=== PATIENT | female | born 1955 | race Caucasian/White ===

== ENCOUNTER 2019-12-20 10:00 | Outpatient (CLI) | payer BC, SELFPAY ==
--- NOTE | 2019-12-20 14:15 | XR_ITS ---
WS: [id number] CHEST 2 VIEWS HISTORY: PLEURAL EFFUSION, RIGHT COMPARISON: 09/28/2017 Lungs: Clear with no abnormality. No pleural effusion or pneumothorax. Cardiac size: Normal. Mediastinum/Aorta: Normal mediastinum. Bones: Normal. XR/XR chest 2V* [id number] IMPRESSION: Negative chest radiograph. No pleural effusion.
== END 2019-12-20 10:01 | disposition home or self-care (01) ==
LOC: WPI 11-11 04:15
PROVIDERS: PCP Nurse Practitioner Family; Visit Provider Nurse Practitioner Family
DX: J90 Pleural effusion, not elsewhere classified (principal)
CPT/HCPCS: 71046

== ENCOUNTER 2020-01-01 09:08 | Outpatient (CLI) | payer BC, SELFPAY ==
--- NOTE | 2020-01-01 09:20 | MM_ITS ---
WS: [id number] SCREENING DIGITAL MAMMOGRAM WITH CAD HISTORY: SCREENING COMPARISON: 11/24/2018 and 10/07/2017 Bilateral CC and MLO views submitted. Computer aided detection analyzed. Breast composition: There are scattered areas of fibroglandular density. No suspicious masses, microc alcifications or architectural distortion. Stable nodule 3:00 LEFT breast. MM/[id number] IMPRESSION: BI-RADS: 2-Benign FOLLOW UP: 1 Year Follow-up
== END 2020-01-01 09:09 | disposition home or self-care (01) ==
LOC: RADSHAW 09:11
PROVIDERS: PCP Nurse Practitioner Family; Visit Provider Nurse Practitioner Family
DX: Z12.31 Encounter for screening mammogram for malignant neoplasm of breast (principal)
CPT/HCPCS: 77067

== ENCOUNTER 2021-01-01 08:35 | Outpatient (CLI) | payer BC, SELFPAY ==
--- NOTE | 2021-01-01 08:46 | MM_ITS ---
WS: [id number] BILATERAL SCREENING DIGITAL MAMMOGRAM WITH CAD HISTORY: SCREENING COMPARISON: 01/01/2020, 11/24/2018, 10/07/2017, 10/08/2016 Bilateral CC and MLO views submitted. Computer aided detection analyzed. Breast composition: There are scattered areas of fibroglandular density. No suspicious masses, microc alcifications or architectural distortion. Benign lymph node middle depth LEFT breast at 3:00. MM/[place] [id number] IMPRESSION: BI-RADS: 2-Benign FOLLOW UP: 1 Year Follow-up
== END 2021-01-01 08:36 | disposition home or self-care (01) ==
LOC: RADSHAW 08:39
PROVIDERS: PCP Nurse Practitioner Family; Visit Provider Nurse Practitioner Family
DX: Z12.31 Encounter for screening mammogram for malignant neoplasm of breast (principal)
CPT/HCPCS: 77067

== ENCOUNTER → 2021-10-31 14:07 | Outpatient (BNVA) | payer MEDICARE, SELFPAY | PROVIDERS: PCP Nurse Practitioner Family; Visit Provider Registered Nurse Neonatal Intensive Care | DX: J01.90 Acute sinusitis, unspecified (principal); W57.XXXA Bitten or stung by nonvenomous insect and other nonvenomous arthropods, initial encounter | CPT/HCPCS: 86618; 86666; 86757 ==

== ENCOUNTER 2021-11-10 12:53 | Outpatient (CLI) | payer MEDICARE, SELFPAY ==
--- NOTE | 2021-11-10 13:05 | XR_ITS ---
WS: [id number] SCREENING DEXA SCAN [employer] CLINICAL INFORMATION: ASYMPTOMATIC MENOPAUSAL STATE COMPARISON: None. FINDINGS: The L1-L4 bone mineral density measures 1.101 g/cm2. This corresponds to a T score score of -0.7 and Z score of 0.1. Left femoral neck bone mineral density measures 0.917 g/cm2. This corresponds to a T score of -0.7 an d Z score of -0.1. Right femoral neck bone mineral density measures 0.905 g/cm2. This corresponds to a T score -0.8of an d Z score of -0.2. Mean femoral neck bone mineral density measures 0.911 g/cm2. This corresponds to a T score of -0.8 an d Z score of -0.1. XR/XR DEXA axial skeleton* [id number] IMPRESSION: Normal bone mineralization. Patient's FRAX calculated 10 year probability for major osteoporotic fracture i s 10.9 % and osteoporotic hip fracture is 1.9%.
== END 2021-11-10 12:54 | disposition home or self-care (01) ==
LOC: RAD 12:54
PROVIDERS: PCP Nurse Practitioner Family; Visit Provider Nurse Practitioner Family
DX: Z78.0 Asymptomatic menopausal state (principal)
CPT/HCPCS: 77080

== ENCOUNTER 2022-01-04 09:59 | Outpatient (CLI) | payer MEDICARE, SELFPAY ==
--- NOTE | 2022-01-04 10:06 | MM_ITS ---
WS: [id number] BILATERAL SCREENING DIGITAL TOMOSYNTHESIS MAMMOGRAM WITH CAD HISTORY: SCREENING COMPARISON: 01/01/2021 and 01/01/2020 Bilateral CC and MLO views with tomosynthesis and synthetic mammography submitted. Computer aided det ection analyzed. Breast composition: There are scattered areas of fibroglandular density. No suspicious masses, microc alcifications or architectural distortion. Benign lymph node LEFT breast at 3:00. MM/[place] [id number] IMPRESSION: BI-RADS: 2-Benign FOLLOW UP: 1 Year Follow-up
== END 2022-01-04 10:00 | disposition home or self-care (01) ==
LOC: RAD 10:00
PROVIDERS: PCP Nurse Practitioner Family; Visit Provider Nurse Practitioner Family
DX: Z12.31 Encounter for screening mammogram for malignant neoplasm of breast (principal)
CPT/HCPCS: 77063; 77067

== ENCOUNTER 2022-04-28 08:18 | Oncology outpatient (recurring) (ONCR) | payer MEDICARE, SELFPAY ==
[2022-04-28 09:58] LABS: Basophils % 0.6 %; Eosinophils # 0.1 10^3/uL (0.0-0.8); Eosinophils % 2.8 %; Hematocrit 42.1 % (37.0-47.0); Hemoglobin 13.7 g/dL (11.5-15.3); Lymphocytes # 1.2 10^3/uL (0.8-4.8); Lymphocytes % 32.4 %; Mean Corpuscular HGB Conc 32.5 g/dL (30.0-36.0); Mean Corpuscular Hemoglobin 29.7 pg (28.0-34.0); Mean Corpuscular Volume 91.3 fl (81-99); Mean Platelet Volume 10.4 fL (7.4-10.4); Monocytes # 0.2 10^3/uL (0.2-0.9); Monocytes % 6.6 %; Neutrophils # 2.07 10^3/uL (1.8-7.7); Neutrophils % 57.3 %; Nucleated Red Blood Cells % 0 %; Platelet Count 122 10^3/cmm (130-400); Red Blood Count 4.61 10^6/uL (4.1-5.3); Red Cell Distribution Width 13.9 % (12.1-15.1); White Blood Count 3.6 10^3/uL (4.0-10.0)
[2022-04-28 10:02] LABS: Erythrocyte Sedimentation Rate 41 mm/hr (0-15)
[2022-04-28 10:15] LABS: Ammonia 35 umol/L (11-51)
[2022-04-28 10:34] LABS: Alanine Aminotransferase 13 U/L (0-33); Albumin Level 3.2 g/dL (3.5-5.2); Alkaline Phosphatase 127 U/L (35-105); Blood Urea Nitrogen 7 mg/dL (8-23); C Reactive Protein 12.6 mg/L (0.0-4.9); Calcium 9.3 mg/dL (8.5-10.5); Carbon Dioxide 26 mmol/L (22-29); Chloride 105 mmol/L (98-107); Globulin 4.2 g/dL (1.3-4.6); Glomerular Filtration Rate 100.3 mL/min (90-130); Glucose 97 mg/dL (65-115); Iron 75 ug/dL (37-145); Osmolality Calculated 284 mOsm/kg (285-295); Sodium 138 mmol/L (136-145); Thyroid Stimulating Hormone 6.07 uIU/mL (0.27-4.20); Total Protein 7.4 g/dL (6.6-8.7); Vitamin B12 321 pg/mL (232-1245)
[2022-04-28 10:37] LABS: Folate Level 8.2 ng/mL (4.8-37.3)
[2022-04-28 10:38] LABS: Anion Gap 11.2 (5-19); Potassium 4.2 mmol/L (3.5-5.1)
[2022-04-28 10:55] LABS: Percent Saturation 29.2 % (20-50); Total Iron Binding Capacity 256 mcg/dl; Unsaturated Iron Binding 181 ug/dL (112-347)
[2022-04-28 11:06] LABS: Aspartate Amino Transferase 25 U/L (0-32)
[2022-04-28 18:26] LABS: LAB Peripheral Smear Sent for Review
== END 2022-05-11 23:59 | disposition home or self-care (01) ==
PROVIDERS: PCP Nurse Practitioner Family; Visit Provider Internal Medicine Medical Oncology
DX: D70.9 Neutropenia, unspecified (principal); D69.6 Thrombocytopenia, unspecified; K74.60 Unspecified cirrhosis of liver; D73.1 Hypersplenism; K75.81 Nonalcoholic steatohepatitis (NASH); R53.83 Other fatigue
CPT/HCPCS: 36415; 80053; 82140; 82607; 82746; 83540; 83550; 84443; 85025; 85651; 86140; 99204

== ENCOUNTER 2023-01-05 09:51 | Outpatient (CLI) | payer MEDICARE, SELFPAY ==
--- NOTE | 2023-01-05 10:09 | MM_ITS ---
WS: [id number] Bilateral screening 3D tomosynthesis digital mammogram, 01/05/2023 Clinical Data: SCREENING Comparison: 01/04/2022, 01/01/2021, 01/01/2020, 11/24/2018, 10/07/2017, 10/08/2016, 10/03/2015, 09/27/2014, , 11/03/2012, 10/01/2011, 10/02/2010, 11/07/2009, 10/31/2008, 10/09/2007. Findings: The breast parenchymal pattern shows fibroglandular tissue. No spiculated masses or clustered calcifi cations are seen. There are no secondary signs of carcinoma. Impression: 1. Negative bilateral mammogram unchanged. 2. Recommend annual screening mammograms. MM/[place] [id number] BIRADS: 1-Negative FOLLOW UP: 1 Year Follow-up The CAD mold checker was used.
== END 2023-01-05 09:52 | disposition home or self-care (01) ==
LOC: RAD 09:53
PROVIDERS: PCP Nurse Practitioner Family; Visit Provider Nurse Practitioner Family
DX: Z12.31 Encounter for screening mammogram for malignant neoplasm of breast (principal)
CPT/HCPCS: 77063; 77067

== ENCOUNTER 2023-05-24 13:21 | Outpatient (CLI) | payer MEDICARE, SELFPAY ==
--- NOTE | 2023-05-24 13:30 | XRR_ITS ---
PROCEDURE INFORMATION: Exam: XR Chest Exam date and time: 05/24/2023 1:46 PM Age: 67 years old Clinical indication: Shortness of breath; Additional info: Shortness of breath on exertion TECHNIQUE: Imaging protocol: Radiologic exam of the chest. Views: 2 views. COMPARISON: CR XR chest 2V* [id number] 12/20/2019 2:24 PM FINDINGS: Lungs: There is a large right pleural effusion with associated right lower lobe consolidation collapse. Pleural spaces: No left pleural effusion. Heart/Mediastinum: Unremarkable. No cardiomegaly. Bones/joints: Multilevel degenerative disease spine with anterior osteophytes. Organs: Post cholecystectomy. XR/XR chest 2V* [id number] IMPRESSION: Large right pleural effusion with right lower lobe consolidation/collapse.
== END 2023-05-24 13:22 | disposition home or self-care (01) ==
LOC: RAD 13:22
PROVIDERS: PCP Nurse Practitioner Family; Visit Provider Nurse Practitioner Family
DX: J90 Pleural effusion, not elsewhere classified (principal); J98.19 Other pulmonary collapse
CPT/HCPCS: 71046

== ENCOUNTER → 2023-06-14 11:59 | Outpatient (BNVA) | payer MEDICARE, SELFPAY | PROVIDERS: PCP Nurse Practitioner Family; Visit Provider Internal Medicine Cardiovascular Disease | DX: I10 Essential (primary) hypertension (principal); D69.6 Thrombocytopenia, unspecified; E78.5 Hyperlipidemia, unspecified; E11.9 Type 2 diabetes mellitus without complications; K74.60 Unspecified cirrhosis of liver | CPT/HCPCS: 99213 ==

== ENCOUNTER 2023-06-23 10:23 | Outpatient (CLI) | payer MEDICARE, SELFPAY ==
--- NOTE | 2023-06-23 10:37 | XRR_ITS ---
PROCEDURE INFORMATION: Exam: XR Chest Exam date and time: 06/23/2023 10:39 AM Age: 67 years old Clinical indication: Shortness of breath; Additional info: Pleural effusion/shortness of breath TECHNIQUE: Imaging protocol: Radiologic exam of the chest. Views: 2 views. COMPARISON: CR XR chest 2V* [id number] 05/24/2023 1:46 PM FINDINGS: Lungs: See Pleural spaces finding. Pleural spaces: Stable large right pleural effusion with adjacent atelectasis or infiltrate. Heart/Mediastinum: Unremarkable. No cardiomegaly. Bones/joints: Unremarkable. XR/XR chest 2V* [id number] IMPRESSION: No significant change since 1 month previously.
== END 2023-06-23 10:24 | disposition home or self-care (01) ==
PROVIDERS: PCP Nurse Practitioner Family; Visit Provider Nurse Practitioner Family
DX: J90 Pleural effusion, not elsewhere classified (principal)
CPT/HCPCS: 71046

== ENCOUNTER 2023-07-21 11:42 | Outpatient (CLI) | payer MEDICARE, SELFPAY ==
--- NOTE | 2023-07-21 11:57 | XR_ITS ---
WS: [id number] PA and lateral chest, 07/21/2023 Clinical Data: PLEURAL EFFUSION/SHORTNESS OF BREATH Comparison: Two-view chest, 06/23/2023 Findings: The patchy opacity in the right lower lobe which is probably combination of atelectasis, pn eumonia and effusion remains the same the left lung is clear. The heart size has not changed. There a re right upper quadrant cholecystectomy clips. Impression: No change in right lower lobe opacity.
--- NOTE | 2023-07-21 11:57 | USCV_ITS ---
Ashley Edwards Age: 67 Gender: F : 1955 Exam Date: 07/21/2023 12:20 Ordering Phys: Mayela Cantor NP Technologist: Exam Location: [facility] [place] Indication: chest pain BP: 120 / 70 HR: 64 Rhythm: Sinus Technical Quality: Adequate MEASUREMENTS (Male / Female) Normal Values 2D ECHO LV Diastolic Diameter PLAX 3.7 cm 4.2 - 5.9 / 3.9 - 5.3 cm IVS Diastolic Thickness 0.9 cm 0.6 - 1.0 / 0.6 - 0.9 cm IVS Systolic Thickness 1.4 cm LVPW Diastolic Thickness 0.9 cm 0.6 - 1.0 / 0.6 - 0.9 cm LVPW Systolic Thickness 1.5 cm LVOT Diameter 2.0 cm LV Ejection Fraction 2D Teich 65.3 % LV Ejection Fraction MOD 2C 71.8 % LV Ejection Fraction 2C AL 69.5 % LA Diameter 2.5 cm RA Systolic Volume 4C AL 26.4 ml RA Systolic Volume 4C MOD 26.2 ml Aorta at Sinotubular Diameter 2.2 cm IVC Diameter 1.6 cm M-MODE LA Ao Ratio MM 1.1 AV Cusp Separation MM 2.2 cm DOPPLER AV Peak Velocity 163.0 cm/s LVOT Peak Velocity 109.0 cm/s AV Area Cont Eq vti 2.5 cm squared AV Area Cont Eq pk 2.1 cm squared MV Peak Velocity 130.0 cm/s MV Area PHT 4.7 cm squared Mitral E to A Ratio 0.8 TV Peak Velocity 166.5 cm/s TR Peak Velocity 206.0 cm/s TR Peak Gradient 17.0 mmHg TV Peak E Velocity 85.0 cm/s Right Atrial Pressure 3.0 mmHg Pulmonary Artery Systolic Pressu 20.0 mmHg PV Peak Velocity 101.0 cm/s FINDINGS Left Ventricle Left ventricle is normal in size. LV systolic function is normal with EF of 55 to 60%. No regional wall motion normalities are seen. Grade 1 diastolic dysfunction. Right Ventricle Normal in size and function Right Atrium Normal in size Left Atrium Normal in size Mitral Valve Structurally normal valve. Trace mitral regurgitation. Aortic Valve Structurally normal aortic valve. No significant stenosis or regurgitation. Tricuspid Valve Mild tricuspid regurgitation. Pulmonary artery systolic pressure is normal. Pulmonic Valve Not well visualized Pericardium Normal Aorta Normal in size IVC Appears to be normal CONCLUSIONS LV systolic function is normal with EF of 55 to 60%. Grade 1 diastolic dysfunction. Trace mitral regurgitation Mild tricuspid regurgitation No comparison studies are available. Aleks Shipley MD (Electronically Signed) Final Date: 24 July 2023 10:45 S
== END 2023-07-21 11:43 | disposition home or self-care (01) ==
LOC: RAD 11:46
PROVIDERS: PCP Nurse Practitioner Family; Visit Provider Nurse Practitioner Family
DX: J90 Pleural effusion, not elsewhere classified (principal); I07.1 Rheumatic tricuspid insufficiency
CPT/HCPCS: 71046; 93306

== ENCOUNTER 2023-11-07 10:17 | Outpatient (CLI) | payer MEDICARE, SELFPAY ==
[2023-11-07 11:19] LABS: INR 1.11 (0.8-1.2)
[2023-11-07 11:23] LABS: Alanine Aminotransferase 30 U/L (0-33); Albumin Level 3.1 g/dL (3.5-5.2); Alkaline Phosphatase 154 U/L (35-105); Anion Gap 15.7 (5-19); Aspartate Amino Transferase 41 U/L (0-32); Blood Urea Nitrogen 10 mg/dL (8-23); Calcium 8.5 mg/dL (8.5-10.5); Carbon Dioxide 23 mmol/L (22-29); Chloride 103 mmol/L (98-107); Globulin 4.1 g/dL (1.3-4.6); Glomerular Filtration Rate 99.7 mL/min (90-130); Glucose 97 mg/dL (65-115); Osmolality Calculated 283 mOsm/kg (285-295); Potassium 4.7 mmol/L (3.5-5.1); Sodium 137 mmol/L (136-145); Total Bilirubin 1.2 mg/dL (0.15-1.2); Total Protein 7.2 g/dL (6.6-8.7)
== END 2023-11-07 10:18 | disposition home or self-care (01) ==
LOC: LAB 10:20
PROVIDERS: PCP Nurse Practitioner Family; Visit Provider Internal Medicine Medical Oncology
DX: K75.81 Nonalcoholic steatohepatitis (NASH) (principal); K74.60 Unspecified cirrhosis of liver
CPT/HCPCS: 36415; 80053; 85610

== ENCOUNTER 2023-12-07 11:24 | Outpatient (CLI) | payer MEDICARE, SELFPAY ==
--- NOTE | 2023-12-07 11:28 | XR_ITS ---
WS: [id number] Exam: XR chest 2V* [id number] Date/Time of Exam: 12/07/2023 11:30 AM Reason For Exam: PERSONAL HX OTHER DZ/SHORTNESS OF BREATH/CIRRHOSIS OF LIVER Comparison 07/21/2023. Again noted is atelectasis and consolidation in the RIGHT lower lung zone with right-sided pleural ef fusion. Pleural effusion has increased slightly. The LEFT lung remains clear and fully expanded. Hear t size is normal. The mediastinum is normal in contour. Bony structures are intact. XR/XR chest 2V* [id number] IMPRESSION: 1. Atelectasis and consolidation in the RIGHT lower lung zone essentially uncha nged. Right-sided pleural effusion is mildly increased.
== END 2023-12-07 11:25 | disposition home or self-care (01) ==
LOC: RAD 11:27
PROVIDERS: PCP Nurse Practitioner Family; Visit Provider Nurse Practitioner Family
DX: Z87.09 Personal history of other diseases of the respiratory system (principal); J98.11 Atelectasis; J90 Pleural effusion, not elsewhere classified; R06.02 Shortness of breath; K74.60 Unspecified cirrhosis of liver
CPT/HCPCS: 71046

== ENCOUNTER 2023-12-21 15:57 | Outpatient (CLI) | payer MEDICARE, SELFPAY ==
--- NOTE | 2023-12-21 16:04 | XRR_ITS ---
PROCEDURE INFORMATION: Exam: XR Chest Exam date and time: 12/21/2023 4:16 PM Age: 68 years old Clinical indication: Shortness of breath TECHNIQUE: Imaging protocol: Radiologic exam of the chest. Views: 2 views. COMPARISON: CR XR chest 2V* [id number] 12/07/2023 11:33 AM FINDINGS: Lungs: Left lung is grossly clear. Pleural spaces: Moderate right pleural effusion has mildly progressed. There is a right mid/lower lung opacity. No pneumothorax. Heart/Mediastinum: Unremarkable. No cardiomegaly. Bones/joints: Unremarkable. XR/XR chest 2V* [id number] IMPRESSION: Moderate right pleural effusion has mildly progressed. Associated right mid/lower lung opacity is present. Left lung is clear.
== END 2023-12-21 15:58 | disposition home or self-care (01) ==
LOC: RAD 15:58
PROVIDERS: PCP Nurse Practitioner Family; Visit Provider Nurse Practitioner Family
DX: R06.02 Shortness of breath (principal)
CPT/HCPCS: 71046

== ENCOUNTER 2024-01-06 12:01 | Outpatient (CLI) | payer MEDICARE, SELFPAY ==
--- NOTE | 2024-01-06 12:07 | XR_ITS ---
WS: [id number] PA and lateral chest, Clinical Data: HX OF PLEURAL EFFUSION/SHORTNESS OF BREATH Comparison: PA and lateral chest, 12/21/2023 Findings: The moderate right pleural effusion has not changed. Left lung is clear. No pneumothorax is seen. The heart is normal. The pulmonary vascularity is not increased. There are right upper quadran t cholecystectomy clips. XR/XR chest 2V* [id number] Impression: No change in moderate right pleural effusion.
== END 2024-01-06 12:02 | disposition home or self-care (01) ==
LOC: RAD 12:04
PROVIDERS: PCP Nurse Practitioner Family; Visit Provider Nurse Practitioner Family
DX: J90 Pleural effusion, not elsewhere classified (principal); R06.02 Shortness of breath
CPT/HCPCS: 71046

== ENCOUNTER 2024-01-24 11:29 | Outpatient (CLI) | payer MEDICARE, SELFPAY ==
[2024-01-24 12:18] LABS: Basophils % 0.3 %; Eosinophils # 0.2 10^3/uL (0.0-0.8); Eosinophils % 5.5 %; Hematocrit 46.6 % (36-47); Lymphocytes # 0.9 10^3/uL (0.8-4.8); Lymphocytes % 25.8 %; Mean Corpuscular HGB Conc 29.8 g/dL (30-55); Mean Corpuscular Hemoglobin 28.7 pg (27-33); Mean Corpuscular Volume 96.1 fl (85-98); Monocytes # 0.3 10^3/uL (0.2-0.9); Neutrophils # 2.19 10^3/uL (1.8-7.7); Neutrophils % 60.1 %; Nucleated Red Blood Cells % 0 %; Platelet Count 62 10^3/cmm (157-399); Red Blood Count 4.85 10^6/uL (3.85-5.65); Red Cell Distribution Width 15.1 % (12.1-15.1); White Blood Count 3.64 10^3/uL (3.29-11.43)
[2024-01-24 12:29] LABS: INR 1.08 (0.8-1.2)
[2024-01-24 12:40] LABS: Alanine Aminotransferase 34 U/L (0-33); Albumin Level 3.2 g/dL (3.5-5.2); Alkaline Phosphatase 164 U/L (35-105); Aspartate Amino Transferase 41 U/L (0-32); Blood Urea Nitrogen 10 mg/dL (8-23); Calcium 8.5 mg/dL (8.5-10.5); Carbon Dioxide 22 mmol/L (22-29); Chloride 101 mmol/L (98-107); Globulin 4.3 g/dL (1.3-4.6); Glomerular Filtration Rate 62.5 mL/min (90-130); Glucose 178 mg/dL (65-115); Osmolality Calculated 277 mOsm/kg (285-295); Sodium 132 mmol/L (136-145); Total Bilirubin 0.9 mg/dL (0.15-1.2); Total Protein 7.5 g/dL (6.6-8.7)
[2024-01-24 12:52] LABS: Anion Gap 13.8 (5-19); Potassium 4.8 mmol/L (3.5-5.1)
== END 2024-01-24 11:30 | disposition home or self-care (01) ==
PROVIDERS: PCP Nurse Practitioner Family
DX: K75.81 Nonalcoholic steatohepatitis (NASH) (principal)
CPT/HCPCS: 36415; 80053; 85025; 85610

== ENCOUNTER 2024-02-07 09:32 | Outpatient (CLI) | payer MEDICARE, SELFPAY ==
[2024-02-07 10:10] LABS: Basophils % 0.5 %; Eosinophils # 0.1 10^3/uL (0.0-0.8); Eosinophils % 2.9 %; Hematocrit 38.8 % (36-47); Lymphocytes # 1.1 10^3/uL (0.8-4.8); Lymphocytes % 25.8 %; Mean Corpuscular HGB Conc 32.7 g/dL (30-55); Mean Corpuscular Hemoglobin 29.1 pg (27-33); Mean Platelet Volume 10.5 fL (7.4-10.4); Monocytes # 0.4 10^3/uL (0.2-0.9); Monocytes % 9.8 %; Neutrophils # 2.47 10^3/uL (1.8-7.7); Neutrophils % 60.8 %; Nucleated Red Blood Cells % 0 %; Platelet Count 92 10^3/cmm (157-399); Red Blood Count 4.36 10^6/uL (3.85-5.65); Red Cell Distribution Width 15.2 % (12.1-15.1); White Blood Count 4.07 10^3/uL (3.29-11.43)
[2024-02-07 10:19] LABS: Estmated Average Glucose 126
[2024-02-07 10:23] LABS: INR 1.03 (0.8-1.2)
[2024-02-07 10:30] LABS: Alanine Aminotransferase 32 U/L (0-33); Albumin Level 3.1 g/dL (3.5-5.2); Alkaline Phosphatase 164 U/L (35-105); Anion Gap 14.2 (5-19); Aspartate Amino Transferase 52 U/L (0-32); Blood Urea Nitrogen 16 mg/dL (8-23); Calcium 8.5 mg/dL (8.5-10.5); Carbon Dioxide 24 mmol/L (22-29); Chloride 105 mmol/L (98-107); Chol HDL Ratio 3.24 mg/dL (0.0-4.40); Cholesterol 110 mg/dL (0-200); Globulin 3.7 g/dL (1.3-4.6); Glomerular Filtration Rate 71.5 mL/min (90-130); Glucose 116 mg/dL (65-115); HDL Cholesterol 34 mg/dL (60-100); LDL Cholesterol Calculated 55 mg/dL (50-129); Osmolality Calculated 288 mOsm/kg (285-295); Potassium 5.2 mmol/L (3.5-5.1); Sodium 138 mmol/L (136-145); Total Bilirubin 0.5 mg/dL (0.15-1.2); Total Protein 6.8 g/dL (6.6-8.7); Triglycerides 105 mg/dL (0-150); VLDL Cholestrol Calculation 21 mg/dL (0-30)
== END 2024-02-07 09:33 | disposition home or self-care (01) ==
LOC: LAB 09:35
PROVIDERS: PCP Nurse Practitioner Family
DX: K75.81 Nonalcoholic steatohepatitis (NASH) (principal); R73.9 Hyperglycemia, unspecified; E78.00 Pure hypercholesterolemia, unspecified
CPT/HCPCS: 36415; 80053; 80061; 83036; 85025; 85610

== ENCOUNTER 2024-02-14 13:15 | Outpatient (CLI) | payer MEDICARE, SELFPAY ==
--- NOTE | 2024-02-14 13:24 | XR_ITS ---
WS: [email or web address] XR chest 2V* [id number] REASON FOR EXAM: PERSONAL HX OF OTHER DZ/SHORTNESS OF BREATH FINDINGS: Right pleural effusion which appears of a somewhat decreased volume compared to 01/06/2024. There continues to be atelectasis in the right lower lung. No other significant interval change compared to the previous study. XR/XR chest 2V* [id number] IMPRESSION: Right pleural effusion and right lower lobe atelectasis somewhat improved doni red to 01/06/2024.
[2024-02-14 13:44] LABS: Basophils % 0.7 %; Eosinophils # 0.2 10^3/uL (0.0-0.8); Eosinophils % 3.6 %; Hematocrit 41.1 % (36-47); Lymphocytes # 1.3 10^3/uL (0.8-4.8); Lymphocytes % 29.2 %; Mean Corpuscular HGB Conc 32.1 g/dL (30-55); Mean Corpuscular Hemoglobin 28.8 pg (27-33); Mean Corpuscular Volume 89.7 fl (85-98); Mean Platelet Volume 10.7 fL (7.4-10.4); Monocytes # 0.3 10^3/uL (0.2-0.9); Monocytes % 7.1 %; Neutrophils # 2.65 10^3/uL (1.8-7.7); Nucleated Red Blood Cells % 0 %; Platelet Count 92 10^3/cmm (157-399); Red Blood Count 4.58 10^6/uL (3.85-5.65); Red Cell Distribution Width 15.7 % (12.1-15.1); White Blood Count 4.49 10^3/uL (3.29-11.43)
[2024-02-14 14:02] LABS: Alanine Aminotransferase 25 U/L (0-33); Albumin Level 3.2 g/dL (3.5-5.2); Alkaline Phosphatase 148 U/L (35-105); Anion Gap 14.4 (5-19); Aspartate Amino Transferase 34 U/L (0-32); Blood Urea Nitrogen 14 mg/dL (8-23); Calcium 7.8 mg/dL (8.5-10.5); Carbon Dioxide 22 mmol/L (22-29); Chloride 102 mmol/L (98-107); Globulin 3.8 g/dL (1.3-4.6); Glomerular Filtration Rate 62.5 mL/min (90-130); Glucose 217 mg/dL (65-115); Osmolality Calculated 285 mOsm/kg (285-295); Potassium 4.4 mmol/L (3.5-5.1); Sodium 134 mmol/L (136-145); Total Bilirubin 0.8 mg/dL (0.15-1.2)
[2024-02-14 14:12] LABS: INR 1.07 (0.8-1.2)
== END 2024-02-14 13:16 | disposition home or self-care (01) ==
LOC: RAD 13:20
PROVIDERS: PCP Nurse Practitioner Family; Visit Provider Nurse Practitioner Family
DX: K75.81 Nonalcoholic steatohepatitis (NASH) (principal); Z87.09 Personal history of other diseases of the respiratory system; R06.02 Shortness of breath; J90 Pleural effusion, not elsewhere classified; J98.11 Atelectasis
CPT/HCPCS: 36415; 71046; 80053; 85025; 85610

== ENCOUNTER 2024-03-01 08:51 | Outpatient (CLI) | payer MEDICARE, SELFPAY ==
--- NOTE | 2024-03-01 09:20 | MM_ITS ---
WS: [id number] BILATERAL SCREENING DIGITAL TOMOSYNTHESIS MAMMOGRAM WITH CAD HISTORY: SCREENING COMPARISON: 01/05/2023, 01/04/2022 Bilateral CC and MLO views with tomosynthesis and synthetic mammography submitted. Computer aided det ection analyzed. Breast composition: There are scattered areas of fibroglandular density. No suspicious masses, microc alcifications or architectural distortion. Benign scattered calcifications in each breast. MM/MM scr BI tomosynthesis [id number] IMPRESSION: BI-RADS: 2 - Benign. FOLLOW UP: 1 Year Follow-up
== END 2024-03-01 08:52 | disposition home or self-care (01) ==
LOC: MOBLMAM 08:54
PROVIDERS: PCP Nurse Practitioner Family; Visit Provider Nurse Practitioner Family
DX: Z12.31 Encounter for screening mammogram for malignant neoplasm of breast (principal); R92.323 Mammographic fibroglandular density, bilateral breasts; R92.1 Mammographic calcification found on diagnostic imaging of breast
CPT/HCPCS: 77063; 77067

== ENCOUNTER 2024-04-10 07:28 | Outpatient (CLI) | payer MEDICARE, SELFPAY ==
--- NOTE | 2024-04-10 07:32 | US_ITS ---
WS: [email or web address] Right upper quadrant abdominal ultrasound, 04/10/2024 Clinical Data: UNSPECIFIED CIRRHOSIS OF LIVER Comparison: Abdomen ultrasound, 10/19/2012 Findings: The gallbladder has been removed. The common bile duct is 0.5 cm and there are no intrahepatic ductal abnormalities. Liver shows no cysts, masses or dilated intrahepatic ducts. The liver shows a coarse echotexture with an irregular surface and a minimal amount of perihepatic ascites. Numerous small calcifications are present in the liver. The portal vein measures 0.9 cm and shows slow flow. The pancreas is not obscured by overlying bowel gas and no cyst, pseudocyst, or evidence of pancreati tis is noted. Right kidney measures 9.1 cm and no cyst, masses or hydronephrosis can be seen. The aorta and inferior vena cava show no vascular abnormalities. US/US abdomen limited [id number] Impression: 1. Small irregular liver with perihepatic ascites consistent with cirrhosis. 2. Absent gallbladder.
== END 2024-04-10 07:29 | disposition home or self-care (01) ==
LOC: RAD 07:29
PROVIDERS: PCP Nurse Practitioner Family; Visit Provider Dietitian, Registered
DX: K74.60 Unspecified cirrhosis of liver (principal); Z90.49 Acquired absence of other specified parts of digestive tract
CPT/HCPCS: 76705

== ENCOUNTER 2024-08-08 06:41 | Outpatient (CLI) | payer MEDICARE, SELFPAY ==
--- NOTE | 2024-08-08 06:49 | US_ITS ---
WS: [email or web address] Complete ABDOMINAL ULTRASOUND HISTORY: cirrhosis COMPARISON: 04/10/2024 Liver: 12.4 cm in length. Small liver with marked nodularity of the surface and coarse echotexture. Small amount of ascites surrounds the liver. Portal Vein: Loss of the normal undulating waveform of the portal vein and decreased velocity. Gallbladder: Prior cholecystectomy. CBD: 0.3 cm Pancreas: Obscured. Right kidney: 9.8 cm x 4.6 x 4.4 cm. Cortex:1.0 cm. Normal size and echogenicity. No hydronephrosis or mass. Left kidney: 9.6 (cm x 5.7 cm x 5.9 cm. Cortex: 1.0 cm. Normal size and echogenicity. No hydronephrosis or mass. Spleen: 13.5 cm. Mildly enlarged spleen. Aorta and IVC: Unremarkable abdominal aorta and IVC. US/US abdomen complete* [id number] Impression: 1. Small cirrhotic liver. 2. Small amount of ascites throughout the abdomen and surrounding the liver. 3. Prior cholecystectomy. 4. Mild splenomegaly. 5. No renal obstruction.
== END 2024-08-08 06:42 | disposition home or self-care (01) ==
PROVIDERS: PCP Nurse Practitioner Family; Visit Provider Nurse Practitioner Family
DX: R18.8 Other ascites (principal); K74.60 Unspecified cirrhosis of liver; Z90.49 Acquired absence of other specified parts of digestive tract; R16.1 Splenomegaly, not elsewhere classified; R93.2 Abnormal findings on diagnostic imaging of liver and biliary tract
CPT/HCPCS: 76700

== ENCOUNTER → 2024-08-10 12:37 | Outpatient (BNVA) | payer MEDICARE, SELFPAY | PROVIDERS: PCP Nurse Practitioner Family; Visit Provider Internal Medicine | DX: M81.0 Age-related osteoporosis without current pathological fracture (principal); I10 Essential (primary) hypertension | CPT/HCPCS: 80053; 82306; 82310; 83970; 84439; 84443 ==

== ENCOUNTER 2024-11-05 15:51 | Outpatient (CLI) | payer MEDICARE, SELFPAY ==
[2024-11-05 17:36] LABS: Anion Gap 17.1 (5-19); Blood Urea Nitrogen 10 mg/dL (8-23); Calcium 8.5 mg/dL (8.5-10.5); Carbon Dioxide 24 mmol/L (22-29); Chloride 93 mmol/L (98-107); Glucose 126 mg/dL (65-115); Osmolality Calculated 271 mOsm/kg (285-295); Potassium 4.1 mmol/L (3.5-5.1); Sodium 130 mmol/L (136-145)
== END 2024-11-05 15:52 | disposition home or self-care (01) ==
LOC: LAB 15:56
PROVIDERS: PCP Nurse Practitioner Family; Visit Provider Internal Medicine Gastroenterology
DX: K74.60 Unspecified cirrhosis of liver (principal)
CPT/HCPCS: 36415; 80048

== ENCOUNTER → 2024-11-15 07:36 | Outpatient (BNVA) | payer MEDICARE, SELFPAY | PROVIDERS: PCP Nurse Practitioner Family; Visit Provider Dermatology | DX: L23.9 Allergic contact dermatitis, unspecified cause (principal); L82.1 Other seborrheic keratosis; D22.5 Melanocytic nevi of trunk; D22.39 Melanocytic nevi of other parts of face; D69.2 Other nonthrombocytopenic purpura; I78.8 Other diseases of capillaries; L98.8 Other specified disorders of the skin and subcutaneous tissue; D48.5 Neoplasm of uncertain behavior of skin | CPT/HCPCS: 11102; 99203 ==

== ENCOUNTER 2024-11-26 13:02 | Outpatient (CLI) | payer MEDICARE, SELFPAY ==
[2024-11-26 13:39] LABS: Anion Gap 13.4 (5-19); Blood Urea Nitrogen 13 mg/dL (8-23); Calcium 8.2 mg/dL (8.5-10.5); Carbon Dioxide 22 mmol/L (22-29); Chloride 96 mmol/L (98-107); Glucose 148 mg/dL (65-115); Osmolality Calculated 267 mOsm/kg (285-295); Potassium 4.4 mmol/L (3.5-5.1); Sodium 127 mmol/L (136-145)
== END 2024-11-26 13:03 | disposition home or self-care (01) ==
LOC: LAB 13:04
PROVIDERS: PCP Nurse Practitioner Family; Visit Provider Internal Medicine Gastroenterology
DX: K74.60 Unspecified cirrhosis of liver (principal)
CPT/HCPCS: 36415; 80048

== ENCOUNTER → 2024-11-29 12:42 | Outpatient (BNVA) | payer MEDICARE, SELFPAY | PROVIDERS: PCP Nurse Practitioner Family; Visit Provider Dermatology | DX: L23.9 Allergic contact dermatitis, unspecified cause (principal); L21.8 Other seborrheic dermatitis; D04.71 Carcinoma in situ of skin of right lower limb, including hip; L24.9 Irritant contact dermatitis, unspecified cause | CPT/HCPCS: 99214 ==

== ENCOUNTER 2024-12-03 15:29 | Outpatient (CLI) | payer MEDICARE, SELFPAY ==
[2024-12-03 16:10] LABS: INR 0.92 (0.8-1.2); Prothrombin Time 13.00 SECONDS (12.1-14.9)
[2024-12-03 16:14] LABS: Alanine Aminotransferase 14 U/L (0-33); Albumin Level 3.1 g/dL (3.5-5.2); Alkaline Phosphatase 145 U/L (35-105); Anion Gap 17.1 (5-19); Aspartate Amino Transferase 25 U/L (0-32); Blood Urea Nitrogen 11 mg/dL (8-23); Calcium 8.7 mg/dL (8.5-10.5); Carbon Dioxide 21 mmol/L (22-29); Chloride 90 mmol/L (98-107); Globulin 4.6 g/dL (1.3-4.6); Glucose 156 mg/dL (65-115); Osmolality Calculated 261 mOsm/kg (285-295); Potassium 4.1 mmol/L (3.5-5.1); Sodium 124 mmol/L (136-145); Total Protein 7.7 g/dL (6.6-8.7)
== END 2024-12-03 15:30 | disposition home or self-care (01) ==
LOC: LAB 15:32
PROVIDERS: PCP Nurse Practitioner Family; Visit Provider Internal Medicine Gastroenterology
DX: K74.60 Unspecified cirrhosis of liver (principal)
CPT/HCPCS: 36415; 80053; 85610

== ENCOUNTER 2024-12-06 09:00 | Outpatient (CLI) | payer MEDICARE, SELFPAY ==
[2024-12-06 10:46] LABS: INR 1.03 (0.8-1.2); Prothrombin Time 14.30 SECONDS (12.1-14.9)
[2024-12-06 10:52] LABS: Alanine Aminotransferase 14 U/L (0-33); Albumin Level 3.1 g/dL (3.5-5.2); Alkaline Phosphatase 169 U/L (35-105); Anion Gap 16.1 (5-19); Aspartate Amino Transferase 24 U/L (0-32); Blood Urea Nitrogen 12 mg/dL (8-23); Calcium 8.7 mg/dL (8.5-10.5); Carbon Dioxide 25 mmol/L (22-29); Chloride 88 mmol/L (98-107); Globulin 4.7 g/dL (1.3-4.6); Glucose 145 mg/dL (65-115); Osmolality Calculated 262 mOsm/kg (285-295); Potassium 4.1 mmol/L (3.5-5.1); Sodium 125 mmol/L (136-145); Total Protein 7.8 g/dL (6.6-8.7)
== END 2024-12-06 09:01 | disposition home or self-care (01) ==
LOC: LAB 09:01
PROVIDERS: PCP Nurse Practitioner Family; Visit Provider Internal Medicine Gastroenterology
DX: K74.60 Unspecified cirrhosis of liver (principal)
CPT/HCPCS: 80053; 85610

== ENCOUNTER 2024-12-11 10:57 | Outpatient (CLI) | payer MEDICARE, SELFPAY ==
[2024-12-11 12:26] LABS: Anion Gap 12.9 (5-19); Blood Urea Nitrogen 12 mg/dL (8-23); Calcium 8.9 mg/dL (8.5-10.5); Carbon Dioxide 26 mmol/L (22-29); Chloride 94 mmol/L (98-107); Glucose 103 mg/dL (65-115); Osmolality Calculated 266 mOsm/kg (285-295); Potassium 4.9 mmol/L (3.5-5.1); Sodium 128 mmol/L (136-145)
== END 2024-12-11 10:58 | disposition home or self-care (01) ==
LOC: LAB 11:02
PROVIDERS: PCP Nurse Practitioner Family; Visit Provider Internal Medicine Gastroenterology
DX: K74.60 Unspecified cirrhosis of liver (principal)
CPT/HCPCS: 36415; 80048

== ENCOUNTER → 2025-01-17 10:55 | Outpatient (BNVA) | payer MEDICARE, SELFPAY | PROVIDERS: PCP Nurse Practitioner Family; Visit Provider Dermatology | DX: D04.71 Carcinoma in situ of skin of right lower limb, including hip (principal); L23.9 Allergic contact dermatitis, unspecified cause; L24.9 Irritant contact dermatitis, unspecified cause; L21.8 Other seborrheic dermatitis; L81.0 Postinflammatory hyperpigmentation; Z85.828 Personal history of other malignant neoplasm of skin | CPT/HCPCS: 99214 ==

== ENCOUNTER 2025-01-24 12:50 | Outpatient (CLI) | payer MEDICARE, SELFPAY ==
[2025-01-24 13:36] LABS: Alanine Aminotransferase 21 U/L (0-33); Albumin Level 2.9 g/dL (3.5-5.2); Alkaline Phosphatase 157 U/L (35-105); Anion Gap 17.4 (5-19); Aspartate Amino Transferase 29 U/L (0-32); Blood Urea Nitrogen 13 mg/dL (8-23); Calcium 8.3 mg/dL (8.5-10.5); Carbon Dioxide 19 mmol/L (22-29); Chloride 94 mmol/L (98-107); Globulin 4.3 g/dL (1.3-4.6); Glucose 213 mg/dL (65-115); Osmolality Calculated 268 mOsm/kg (285-295); Potassium 4.4 mmol/L (3.5-5.1); Sodium 126 mmol/L (136-145); Total Protein 7.2 g/dL (6.6-8.7)
== END 2025-01-24 12:51 | disposition home or self-care (01) ==
LOC: LAB 12:56
PROVIDERS: PCP Nurse Practitioner Family; Visit Provider Internal Medicine Gastroenterology
DX: K74.69 Other cirrhosis of liver (principal)
CPT/HCPCS: 36415; 80053; 82248

== ENCOUNTER 2025-01-29 15:53 | Emergency (ER) | payer MEDICARE, SELFPAY ==
[2025-01-29 16:09] VITALS: BP 130/83; PULSE 94; TEMP 36.7; O2SAT 97
--- NOTE | 2025-01-29 16:29 | W.ED.WOUNDLC ---
HPI - Wound/Laceration General: Chief Complaint: Abdominal Pain Stated Complaint: drainage from abd, had a procedure done yesterday Time Seen by Provider: 01/29/25 16:18 Source: patient Mode of arrival: ambulatory Limitations: no limitations History of Present Illness: Patient is a very nice 69-year-old female with a history of liver cirrhosis secondary to nonalcoholic steatohepatitis presents to ED today with a complaint of an ascites fluid leak following a paracentesis that she had performed yesterday in [place]. She states she is getting paracenteses performed approximately every 2 weeks. She does have a GI specialist that she follows with in [place]. Patient is not having any pain at this time and feels much better after they took 6 L off yesterday. She states her puncture site is leaking and soaking bandages. She states that has done this once before and they ended up placing skin adhesive/glue over the site which was successful in stopping the leak. Onset (ago): hour(s) Location: abdomen Patient tetanus UTD: Yes Associated symptoms: Reports no associated symptoms; Denies fever(s) Related Data Home Medications ?Medication ?Instructions ?Recorded ?Confirmed atorvastatin 20 mg tablet 20 mg PO DAILY 02/04/20 08/10/24 desvenlafaxine succinate 50 mg 50 mg PO DAILY 02/04/20 08/10/24 tablet,extended release 24 hr oxybutynin chloride 5 mg tablet 5 mg PO DAILY 02/04/20 08/10/24 betamethasone valerate 0.1 % 1 applic topical BID 04/28/22 08/10/24 topical ointment [id number]-sbqdromi-fiesifec 1 drp ophthalmic (eye) Q12H 04/28/22 08/10/24 80 0.5 %-1 %-0.5 % eye drops (Refresh Optive Advanced) epinephrine 0.3 mg/0.3 mL 0.3 mg IM Q4H PRN 04/28/22 08/10/24 injection, auto-injector famotidine 20 mg tablet 20 mg PO BID 04/28/22 08/10/24 hydroxyzine HCl 25 mg tablet 25 mg PO BID PRN 04/28/22 08/10/24 loratadine 10 mg tablet 10 mg PO DAILY 04/28/22 08/10/24 metronidazole 500 mg tablet 500 mg PO Q12H 04/28/22 08/10/24 pantoprazole 20 mg tablet,delayed 20 mg PO BID 04/28/22 08/10/24 release spironolactone 50 mg tablet 50 mg PO DAILY 04/28/22 08/10/24 triamcinolone acetonide 0.025 % 1 applic topical DAILY PRN 04/28/22 08/10/24 topical cream aripiprazole 2 mg tablet 2 mg PO DAILY 06/14/23 08/10/24 budesonide 32 mcg/actuation nasal 2 spray intranasal DAILY PRN 06/14/23 08/10/24 spray montelukast 10 mg tablet 10 mg PO DAILY 06/14/23 08/10/24 nadolol 40 mg tablet 40 mg PO DAILY 06/14/23 08/10/24 Previous Rx's ?Medication ?Instructions ?Recorded cholecalciferol (vitamin D3) 1,250 50,000 unit PO .COMPLEX #10 tabs 08/15/24 mcg (50,000 unit) tablet Allergies Allergy/AdvReac Type Severity Reaction Status Date / Time Alpha-Gal Allergy ALGY-Anaphy Verified 01/29/25 16:16 (Plxftfjjc-Ospsl-5,3-Gala laxis lisinopril Allergy ADR-Headach Verified 01/29/25 16:16 e metformin Allergy ADR-Dizzine Verified 01/29/25 16:16 ss nitrofurantoin (From Allergy ADR-Nausea Verified 01/29/25 16:16 Macrobid) simvastatin (From Zocor) Allergy ADR-Dizzine Verified 01/29/25 16:16 ss sulfa Allergy ALGY-Rash Uncoded 01/29/25 16:16 Review of Systems Const: Denies: fever(s) Card: Denies: chest pain Resp: Denies: dyspnea GI: Denies: abdominal pain Skin/Breast: Reports: other (leaking paracentesis site) PFSH ED PFSH: Medical History Anxiety and depression Liver cirrhosis Diagnosed in 2019 and suspected to be secondary to nonalcoholic steatohepatitis Allergic rhinitis Hyperlipidemia Nephrolithiasis Type 2 diabetes mellitus Hypertension Surgical History Status post trigger finger release History of carpal tunnel release of both wrists History of cholecystectomy History of colonoscopy History of esophagogastroduodenoscopy EGD with esophageal banding Family History Father Hypertension Stroke Mother CAD (coronary artery disease) Cancer Non-Hodgkin's lymphoma Brother CAD (coronary artery disease) Sister CAD (coronary artery disease) Diabetes Social History Smoking and tobacco/nicotine status: never used tobacco/nicotine Alcohol intake: never Substance/Drug Use: never Physical Exam Const: COMMON NORMALS: no acute distress, average body habitus, no limitations, healthy appearing, alert and well nourished GENERAL APPEARANCE: cooperative ORIENTATION/CONSCIOUSNESS: Yes awake, Yes oriented to person, Yes oriented to place and Yes oriented to time GI: COMMON NORMALS: Normal to inspection, nondistended, normoactive bowel sounds present, Soft to palpation and no masses INSPECTION: Yes normal to inspection PALPATION: Yes Soft to palpation, No Tenderness to palpation present (GI), No Guarding due to palpation present (GI) and No Rigid due to palpation OTHER: small puncture site from recent paracentesis to the left side of abdomen with ascites fluid drainage Neuro: SENSORIUM/ORIENTATION: Yes alert, Yes oriented to person, Yes oriented to place and Yes oriented to time Course Vital Signs: Vital signs: Vital Signs Temperature 98.1 F 01/29/25 16:09 Pulse Rate 84 01/29/25 16:38 Blood Pressure 157/54 01/29/25 16:38 Pulse Oximetry 100 01/29/25 16:38 Oxygen Delivery Me thod Room Air 01/29/25 16:09 MDM - Wound/Laceration Medical Decision Making Discussed risks of continuing to allow area to drain which would include continued rapid soaked bandages and skin maceration. An option would be to place an ostomy bag to collect fluid but patient declines this. She would like to try the skin adhesive/glue again as this has worked previously. This was performed at patient request and at time of discharge seemed to be controlling leak. Discussed reaching out to her geophysics scientist/IR team if leak persists. Medical Records I reviewed the patient's medical records. No radiology studies performed this visit Discharge Plan Discharge Patient Disposition: Home Clinical Impression: Status post abdominal paracentesis Condition: Stable Prescriptions: No Action atorvastatin 20 mg tablet 20 mg PO DAILY oxybutynin chloride 5 mg tablet 5 mg PO DAILY desvenlafaxine succinate 50 mg tablet extended release 24 hr 50 mg PO DAILY pantoprazole 20 mg tablet,delayed release (DR/EC) 20 mg PO BID betamethasone valerate 0.1 % ointment 1 applic topical BID epinephrine 0.3 mg/0.3 mL auto-injector 0.3 mg IM Q4H PRN famotidine 20 mg tablet 20 mg PO BID hydroxyzine HCl 25 mg tablet 25 mg PO BID PRN loratadine 10 mg tablet 10 mg PO DAILY metronidazole 500 mg tablet 500 mg PO Q12H Refresh Optive Advanced 0.5-1-0.5 % drops 1 drp ophthalmic (eye) Q12H spironolactone 50 mg tablet 50 mg PO DAILY triamcinolone acetonide 0.025 % cream 1 applic topical DAILY PRN budesonide 32 mcg/actuation spray,non-aerosol 2 spray intranasal DAILY PRN Rx Instructions: administer into each nostril montelukast 10 mg tablet 10 mg PO DAILY aripiprazole 2 mg tablet 2 mg PO DAILY nadolol 40 mg tablet 40 mg PO DAILY cholecalciferol (vitamin D3) 1,250 mcg (50,000 unit) tablet 50,000 unit PO .COMPLEX Qty: 10 0RF Rx Instructions: 50,000 units orally once a week for 2 months; Discharge Orders: Discharge ED (Routine); Ordered 01/29/25 Ordered By: Fawn Woodruff Referrals: Mayela Cantor NP [Primary Care Provider, Unknown] Patient Instructions: Patient Portal & Mitch Instructions Print Language: Upper Sorbian Coding Level of Care Code ED [employer] Production Worker for Jyothi Dubois
[2025-01-29 16:38] VITALS: BP 157/54; PULSE 84; O2SAT 100
--- OUTSIDE RECORDS SUMMARY | 2025-01-29 18:34 | XMS_ITS | Clinical Summary ---
Author Organization [facility] Address [address] [place]: Epic Prelude ADT [place] [id number] Care Team Providers Care Seam Hammerer Name Role Phone Unavailable Primary Care Provider Unavailabl e Allergies Active Allergy Reactions Criticality Noted Date Comments Lisinopril Dizziness Low 04/15/2022 Metformin Dizziness Low 04/15/2022 Nitrofurantoin Monohyd/M-Cryst Nausea and Vomiting Low 04/15/2022 Simvastatin Dizziness Low 04/15/2022 Sulfa (Sulfonamide Antibiotics) Rash Low 08/2022 Medications amLODIPine (NORVASC) 5 mg tablet Take 5 mg by mouth daily. Active aspirin (ECOTRIN EC) 81 mg Tablet, Delayed Release (E.C.) Take 81 mg by mouth daily. Active atorvastatin (LIPITOR) 20 mg tablet Take 20 mg by mouth daily. Active betamethasone valerate (VALISONE) 0.1 % Ointment Apply to affected area 2 times daily. Active BUDESONIDE BOTH NOSTRIL Administer in each nostril. Active desvenlafaxine (PRISTIQ) 50 mg Extended Release 24 hour tablet Take 50 mg by mouth daily with breakfast. Active EPINEPHrine (EPIPEN) 0.3 mg/0.3 mL Auto-Injector Inject 0.3 mg by intramuscular injection 1 time daily as needed for Anaphylaxis. Active famotidine (PEPCID) 20 mg tablet Take 20 mg by mouth 2 times daily. Active fluticasone propionate (FLONASE) 50 mcg/spray [place], Suspension nasal inhaler Administer 2 Sprays in each nostril daily. Active hydrOXYzine HCL (ATARAX) 25 mg tablet Take 25 mg by mouth 3 times daily as needed for Itching. Active loratadine (CLARITIN) 10 mg tablet Take 10 mg by mouth daily. Active metroNIDAZOLE (FLAGYL) 500 mg tablet Take 500 mg by mouth 3 times daily. Active olmesartan (BENICAR) 20 mg tablet Take 20 mg by mouth daily. Active oxybutynin chloride (DITROPAN) 5 mg tablet Take 5 mg by mouth 3 times daily. Active pantoprazole (PROTONIX) 20 mg Tablet, Delayed Release (E.C.) Take 20 mg by mouth daily. Active spironolactone (ALDACTONE) 50 mg tablet Take 50 mg by mouth daily. Active triamcinolone acetonide (KENALOG) 0.025 % Cream Apply to affected area 2 times daily. Active Active Problems Problem Noted Date Diagnosed Date Allergic rhinitis 06/29/2010 Immunizations Immunization Administration Dates Next Due (TDVAX)(7 YRS UP) TETANUS AN D DIPHTHERIA TOXOIDS, ADSORBED (2 LF OF TETANUS TOXOID AND 2 LF OF DIPHTHERIA TOXOID), 0.5ML (PF), IM 01/27/1998 Family History Medical History Relation Name Comments Heart Disease Brother High Cholesterol Brother Hypertension Brother Hypertension Father Stroke Father Diabetes Maternal Grandfather Heart Disease Maternal Grandfather Diabetes Maternal Grandmother Heart Disease Maternal Grandmother Cancer Mother Heart Disease Mother Diabetes Paternal Aunt Diabetes Paternal Grandfather Heart Disease Paternal Grandfather Diabetes Paternal Grandmother Heart Disease Paternal Grandmother Hypertension Sister Liver Disease Sister Relation Name Status Comments Brother Father Maternal Grandfather Maternal Grandmother Mother Paternal Aunt Paternal Grandfather Paternal Grandmother Sister Social History Tobacco Use Types Packs/Day Years Used Date Smoking Tobacco: Never Smokeless Tobacco: Never Tobacco Cessation:Counseling Given: Not Answered Alcohol Use Standard Drinks/Week Comments No 0 (1 standard drink = 0.6 oz pur e alcohol) Comments Unknown Sex and Gender Information Value Date Recorded Sex Assigned at Not on file Legal 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 Gender Identity Not on file Sexual Orientation Not on file Last Filed Vital Signs Vital Sign Reading Time Taken Comments Blood Pressure 111/52 04/15/2022 6:00 PM DRAWBENCH OPERATOR HELPER Pulse 71 04/15/2022 6:00 PM DRAWBENCH OPERATOR HELPER Temperature 37.2 C (98.9 F) 04/15/2022 4:11 PM DRAWBENCH OPERATOR HELPER Respiratory Rate 18 04/15/2022 5:00 PM DRAWBENCH OPERATOR HELPER Oxygen Saturation 97% 04/15/2022 6:00 PM DRAWBENCH OPERATOR HELPER Inhaled Oxygen Concentration - - Weight 92.5 kg (204 lb) 04/15/2022 4:11 PM DRAWBENCH OPERATOR HELPER Height 152.4 cm (5') 04/15/2022 4:11 PM DRAWBENCH OPERATOR HELPER Body Mass Index 39.84 04/15/2022 4:11 PM DRAWBENCH OPERATOR HELPER Plan of Treatment Health Maintenance Due Date Last Done Comments DIABETES ANNUAL FOOT EXAM 1974 DIABETES ANNUAL RETINAL EXAM 1974 DIABETES HBA1C Q 6 MONTHS 1974 DIABETES MICROALBUMIN ANNUAL SCREEN 1974 LDL CHOLESTEROL ANNUAL 1974 PNEUMOCOCCAL VACCINE 50+ YEARS (1 of 2 - PCV) 08/14/18 76 BREAST CANCER SCREENING 1996 DTAP/TDAP/TD VACCINES (1 - Tdap) 01/28/1998 01/27/19 98 COLORECTAL SCREENING 2001 Colorectal Cancer Screening 2001 FIT-DNA Q 3 years 2001 FIT/FOBT Q 1 year 2001 Flex Sig/CT Colonography Q 5 years 2001 ZOSTER VACCINE (1 of 2) 2006 OSTEOPOROSIS SCREENING 2021 INFLUENZA VACCINE (#1) 2024 RSV VACCINE (60+ or ) (1 - 1-dose 75+ series) 08/15/2031 Insurance MEDICARE PART A AND B [facility] [id number]
--- OUTSIDE RECORDS SUMMARY | 2025-01-29 18:34 | XMS_ITS | Clinical Summary ---
Author Organization [facility] Address [address] [place] [id number] Phone Care Team Providers Care Cognos Analyst Name Role Phone Unavailable Primary Care Provider Unavailabl e Allergies Active Allergy Reactions Criticality Noted Date Comments Alpha-Gal (Owhoseuep-Cbydd-4,3-Gal actose) Anaphylaxis,Diarrhea, Nausea/Vomiting High 01/15/2025 Allergies received in medical records Lisinopril Dizziness 01/15/2025 Metformin Dizziness 01/15/2025 Nitrofurantoin Monohyd/M-Cryst Nausea/Vomiting 01/15/2025 Shellfish Derived Anaphylaxis High 01/15/2025 Simvastatin Dizziness 01/15/2025 Sulfa (Sulfonamide Antibiotics) Rash Low 01/15/2025 Active Problems Problem Noted Date Diagnosed Date Other ascites 01/15/2025 Encounters Date Type Department Care Team Description 01/15/2025 Orders Only [facility] Infusion [address] [address] Khadra Romero RN from Last 3 Months Social History Tobacco Use Types Packs/Day Years Used Date Smoking Tobacco: Never Assessed Comments Unknown Sex and Gender Information Value Date Recorded Sex Assigned at Not on file Legal Sex Female 9:54 AM CDT Gender Identity Not on file Sexual Orientation Not on file Plan of Treatment Health Maintenance Due Date Last Done Comments CT Colonography 1956 Colonoscopy 1956 Colorectal Cancer Screening 1956 FIT-DNA 1956 FIT 1956 FOBT 1956 Sigmoidoscopy 1956 MMR Vaccines (1 of 1 - Stand lewis series) 1957 DTaP,Tdap,and Td Vaccines (1 - Tdap) 08/15/1963 Varicella Vaccines (1 of 2 - 13+ 2-dose series) 1969 Depression Screening 1974 Social Drivers of Health (SDoH) 1974 Mammogram 1996 Pneumococcal Vaccine: 50+ Ye ars (1 of 1 - PCV) 2006 Zoster Vaccines (1 of 2) 2006 Complete Fall Risk Assessment 2021 COVID-19 Vaccine (1 - 2023-2 5 season) 2024 Influenza Vaccine (#1) 2024 RSV Vaccines (1 - 1-dose 75+ series) 08/15/2031 HIB Vaccines Aged Out No longer eligi ble based on patient's age to complete this topic HPV Vaccines Aged Out No longer eligi ble based on patient's age to complete this topic Hepatitis A Vaccines Aged Out No long er eligible based on patient's age to complete this topic Hepatitis B Vaccines Aged Out No long er eligible based on patient's age to complete this topic IPV Vaccines Aged Out No longer eligi ble based on patient's age to complete this topic Meningococcal B Vaccine Aged Out No l onger eligible based on patient's age to complete this topic Meningococcal Vaccine Aged Out No juventino aniceto eligible based on patient's age to complete this topic Pneumococcal Vaccine Aged Out No long er eligible based on patient's age to complete this topic Rotavirus Vaccines Aged Out No longer eligible based on patient's age to complete this topic
== END 2025-01-29 16:39 | disposition home or self-care (01) ==
PROVIDERS: Emergency Provider Physician Assistant; PCP Nurse Practitioner Family
DX: Z48.815 Encounter for surgical aftercare following surgery on the digestive system (principal); E78.5 Hyperlipidemia, unspecified; E11.9 Type 2 diabetes mellitus without complications; I10 Essential (primary) hypertension
CPT/HCPCS: 99282

== ENCOUNTER 2025-01-31 13:28 | Outpatient (CLI) | payer MEDICARE, SELFPAY ==
[2025-01-31 15:40] LABS: Alanine Aminotransferase 20 U/L (0-33); Albumin Level 3.5 g/dL (3.5-5.2); Alkaline Phosphatase 195 U/L (35-105); Blood Urea Nitrogen 9 mg/dL (8-23); Calcium 8.9 mg/dL (8.5-10.5); Carbon Dioxide 22 mmol/L (22-29); Chloride 98 mmol/L (98-107); Globulin 4.8 g/dL (1.3-4.6); Glucose 117 mg/dL (65-115); Osmolality Calculated 274 mOsm/kg (285-295); Sodium 132 mmol/L (136-145); Total Protein 8.3 g/dL (6.6-8.7)
[2025-01-31 15:42] LABS: Anion Gap 16.5 (5-19); Aspartate Amino Transferase 36 U/L (0-32); Potassium 4.5 mmol/L (3.5-5.1)
== END 2025-01-31 13:29 | disposition home or self-care (01) ==
PROVIDERS: Internal Medicine; PCP Nurse Practitioner Family; Visit Provider Internal Medicine Gastroenterology
DX: E11.9 Type 2 diabetes mellitus without complications (principal); M81.0 Age-related osteoporosis without current pathological fracture; E87.1 Hypo-osmolality and hyponatremia
CPT/HCPCS: 36415; 80053; 82306

== ENCOUNTER 2025-02-13 15:27 | Outpatient (CLI) | payer MEDICARE, SELFPAY ==
[2025-02-13 17:28] LABS: Anion Gap 14.4 (5-19); Blood Urea Nitrogen 11 mg/dL (8-23); Calcium 9.2 mg/dL (8.5-10.5); Carbon Dioxide 24 mmol/L (22-29); Chloride 101 mmol/L (98-107); Glucose 123 mg/dL (65-115); Osmolality Calculated 281 mOsm/kg (285-295); Potassium 4.4 mmol/L (3.5-5.1); Sodium 135 mmol/L (136-145)
== END 2025-02-13 15:28 | disposition home or self-care (01) ==
LOC: LAB 15:28
PROVIDERS: PCP Nurse Practitioner Family; Visit Provider Internal Medicine Gastroenterology
DX: E87.1 Hypo-osmolality and hyponatremia (principal)
CPT/HCPCS: 36415; 80048

== ENCOUNTER 2025-02-19 10:47 | Outpatient (CLI) | payer MEDICARE, SELFPAY ==
--- NOTE | 2025-02-19 10:57 | USCV_ITS ---
Ashley Edwards Age: 69 Gender: F : 1955 Exam Date: 02/19/2025 11:21 Ordering Phys: Rah Gross MD Technologist: Exam Location: [facility] [place] Indication: prep op for tips procedure BP: 120 / 70 HR: 74 Rhythm: Sinus Technical Quality: Technically difficult study MEASUREMENTS (Male / Female) Normal Values 2D ECHO LV Ejection Fraction MOD 4C 67.7 % RA Systolic Volume 4C AL 29.7 ml RA Systolic Volume 4C MOD 28.4 ml M-MODE LA Ao Ratio MM 1.2 AV Cusp Separation MM 2.6 cm DOPPLER AV Peak Velocity 132.0 cm/s MV Peak Velocity 101.0 cm/s MV Area PHT 3.7 cm squared Mitral E to A Ratio 0.9 TV Peak Velocity 152.0 cm/s TR Peak Velocity 170.0 cm/s TR Peak Gradient 11.6 mmHg FINDINGS Left Ventricle Normal left ventricular size, systolic function and wall thickness with no regional wall motion abnormality. Left ventricular ejection fraction is 68%. Normal left ventricular diastolic function. Right Ventricle Normal right ventricular size and systolic function. Right Atrium Normal right atrial size. Left Atrium Normal left atrial size. IA Septum Normal appearance of the interatrial septum. Mitral Valve Normal mitral valve structure. No mitral valve stenosis or regurgitation. Aortic Valve Normal aortic valve structure. No aortic valve stenosis or regurgitation. Tricuspid Valve Normal tricuspid valve structure. Trace regurgitation. Normal pulmonary pressure. Pulmonic Valve Normal pulmonic valve structure. No pulmonic valve stenosis or regurgitation. Pericardium No pericardial effusion. Aorta Normal diameter of the aortic root and ascending thoracic aorta. IVC IVC not well-visualized. CONCLUSIONS Normal left ventricular size, systolic function and wall thickness with ejection fraction of 68 %. Normal right ventricular size and systolic function. No significant valvular abnormalities. Chris Felix MD, FACC (Electronically Signed) Final Date: 20 February 2025 18:50 S
--- NOTE | 2025-02-19 12:56 | MRR_ITS ---
PROCEDURE INFORMATION: Exam: MR Abdomen Without Contrast Exam date and time: 02/19/2025 1:08 PM Age: 69 years old Clinical indication: Condition or disease; Liver condition; Cirrhosis TECHNIQUE: Imaging protocol: Magnetic resonance imaging of the abdomen without contrast. COMPARISON: CT abdomen pelvis con [id number] 03/05/2019 9:29 AM FINDINGS: Liver: Cirrhotic morphology. No demonstrable mass. Gallbladder and biliary ducts: Cholecystectomy. No ductal dilation. Pancreas: Of 5.5 and a 3.6 mm cystic lesion tail of the pancreas. Follow-up imaging in a year recommended.. No ductal dilation. Spleen: Mild splenomegaly as seen previously. Adrenal glands: Unremarkable. No mass. Kidneys: Unremarkable. No solid mass. No hydronephrosis. Stomach and bowel: Mildly distended containing fluid and partially digested food stuff. This may indicate some delayed emptying. Small bowel contains fluid and shows no significant distension. Visualized colon unremarkable. Intraperitoneal space: Moderate ascites. Vasculature: No abdominal aortic aneurysm. Lymph nodes: No enlarged nodes. Bones/joints: Unremarkable. No suspicious lesions. Soft tissues: Unremarkable. MR/MR abdomen con [id number] IMPRESSION: 1. Cirrhotic morphology of the liver without demonstrable mass. 2. Mild splenomegaly as seen previously. 3. Moderate ascites. 4. Two small cystic lesions tail of the pancreas. Follow-up imaging in a year recommended.
== END 2025-02-19 10:48 | disposition home or self-care (01) ==
LOC: RAD 10:49
PROVIDERS: PCP Nurse Practitioner Family; Visit Provider Internal Medicine Gastroenterology
DX: K74.69 Other cirrhosis of liver (principal); K86.2 Cyst of pancreas; Z90.49 Acquired absence of other specified parts of digestive tract; R16.1 Splenomegaly, not elsewhere classified; R18.8 Other ascites; K74.60 Unspecified cirrhosis of liver
CPT/HCPCS: 74181; 93306

== ENCOUNTER 2025-03-21 10:33 | Outpatient (CLI) | payer MEDICARE, SELFPAY ==
--- NOTE | 2025-03-21 10:44 | MM_ITS ---
WS: [id number] BILATERAL 3D TOMOSYNTHESIS DIGITAL SCREENING MAMMOGRAPHY WITH CAD CLINICAL INFORMATION: SCREENING HISTORY: Screening mammogram. No current complaints. COMPARISON: 2023 TECHNIQUE: Bilateral CC and MLO views. FINDINGS: Scattered fibroglandular densities bilaterally. No suspicious focal mass, asymmetry, calcifications, or architectural distortion. No evidence of malignancy. Lucent centered calcification RIGHT breast MM/MM scr BI tomosynthesis [id number] IMPRESSION: DENSITY: There are scattered areas of fibroglandular density. BI-RADS: 2 - Benign. FOLLOW UP: 1 Year Follow-up Recommend return to annual screening mammography.
== END 2025-03-21 10:34 | disposition home or self-care (01) ==
LOC: RAD 10:34
PROVIDERS: PCP Nurse Practitioner Family; Visit Provider Nurse Practitioner Family
DX: Z12.31 Encounter for screening mammogram for malignant neoplasm of breast (principal); R92.323 Mammographic fibroglandular density, bilateral breasts; R92.1 Mammographic calcification found on diagnostic imaging of breast
CPT/HCPCS: 77063; 77067

== ENCOUNTER 2025-03-27 12:04 | Outpatient (CLI) | payer MEDICARE, SELFPAY ==
[2025-03-27 13:27] LABS: Anion Gap 12.9 (5-19); Blood Urea Nitrogen 11 mg/dL (8-23); Calcium 9.3 mg/dL (8.5-10.5); Carbon Dioxide 26 mmol/L (22-29); Chloride 99 mmol/L (98-107); Glucose 124 mg/dL (65-115); Osmolality Calculated 277 mOsm/kg (285-295); Potassium 4.9 mmol/L (3.5-5.1); Sodium 133 mmol/L (136-145)
== END 2025-03-27 12:05 | disposition home or self-care (01) ==
PROVIDERS: PCP Nurse Practitioner Family; Visit Provider Internal Medicine Gastroenterology
DX: K74.69 Other cirrhosis of liver (principal)
CPT/HCPCS: 36415; 80048

== ENCOUNTER 2025-04-09 13:36 | Outpatient (CLI) | payer MEDICARE, SELFPAY ==
[2025-04-09 14:53] LABS: Alanine Aminotransferase 34 U/L (0-33); Albumin Level 2.9 g/dL (3.5-5.2); Alkaline Phosphatase 208 U/L (35-105); Aspartate Amino Transferase 48 U/L (0-32); Blood Urea Nitrogen 7 mg/dL (8-23); Calcium 8.3 mg/dL (8.5-10.5); Carbon Dioxide 21 mmol/L (22-29); Chloride 100 mmol/L (98-107); Globulin 4.1 g/dL (1.3-4.6); Glucose 105 mg/dL (65-115); Osmolality Calculated 272 mOsm/kg (285-295); Sodium 132 mmol/L (136-145); Total Protein 7.0 g/dL (6.6-8.7)
[2025-04-09 15:05] LABS: Anion Gap 15.4 (5-19); Potassium 4.4 mmol/L (3.5-5.1)
== END 2025-04-09 13:37 | disposition home or self-care (01) ==
LOC: LAB 13:40
PROVIDERS: PCP Nurse Practitioner Family; Visit Provider Internal Medicine Gastroenterology
DX: K74.60 Unspecified cirrhosis of liver (principal)
CPT/HCPCS: 36415; 80053